=== PATIENT | female | born 1935 | race Caucasian/White ===

== ENCOUNTER 2019-07-12 09:22 | Inpatient (IN) | payer OTHER ==
[2019-07-12] VITALS (34 sets, daily range): BP systolic 81–147; BP diastolic 42–75
[~2019-07-12] VITALS: Ht 170.2 cm; Wt 74.0 kg
[2019-07-12] MEDS ORDERED: SODIUM CHLORIDE 0.9% 1,000 ML IV ONE ×4 (09:51→16:45)
[2019-07-12] MEDS ORDERED: PANTOPRAZOLE 80 MG in SODIUM CHL 0.9% 60 ML IV ONE (10:00)
[2019-07-12] MEDS ORDERED: OCTREOTIDE ACETATE 100 MCG in SODIUM CHL 0.9% 50 ML IV ONE (10:00)
[2019-07-12 10:31] LABS: Calcium 8.9 mg/dL (8.5-10.1); Chloride 105 mmol/L (98-107); Sodium 138 mmol/L (136-145)
[2019-07-12 10:34] LABS: Albumin 2.2 g/dL (3.4-5.0); Anion Gap 18 (5-15); BUN/Creatinine Ratio 30.7; Blood Alcohol < 3.0 mg/dL (0-5); Blood Urea Nitrogen 65 mg/dL (7-18); Carbon Dioxide 15 mmol/L (21-32); GFR African American 28 mL/min; GFR Non-African American 24 mL/min; Glucose 63 mg/dL (74-106)
[2019-07-12 10:37] LABS: Hemoglobin 13.1 g/dL (12.2-16.2)
[2019-07-12 10:37] LABS: Urine Amorphous Crystal FEW /hpf (None Seen); Urine Bacteria MOD /hpf (None Seen); Urine Blood Negative /uL (Negative); Urine Hyaline Cast FEW /lpf (0 - 2); Urine Specific Gravity 1.008 (1.001-1.035); Urine WBC 83 /hpf (0 - 5); Urine WBC Clumps PRESENT /hpf (None Seen)
[2019-07-12 10:38] LABS: Lactic Acid w/Reflex 10.4 mmol/L (0.4-2.0)
[2019-07-12 10:42] LABS: Alanine Aminotransferase 21 U/L (13-56); Alkaline Phosphatase 710 U/L (45-117); Aspartate Aminotransferase 38 U/L (15-37); Bilirubin, Total 1.6 mg/dL (0.2-1.0); Hematocrit 39.2 % (36.0-46.0); Mean Corpuscular Hemoglobin 28.4 pg (28.0-32.0); Mean Corpuscular Hgb Conc. 33.4 g/dL (32.0-36.0); Platelet Count (auto) 34 10^3/uL (140-450); Red Blood Cells 4.61 10^6/uL (4.0-5.20); Red Cell Distribution Width 18.6 % (11.8-14.3); Total Protein 6.4 g/dL (6.4-8.2); White Blood Cell 8.2 10^3/uL (4.4-10.8)
[2019-07-12] MEDS ORDERED: SODIUM CHLORIDE 0.9% 500 ML IV ONE (10:45)
[2019-07-12 10:50] LABS: INR 1.21 (0.9-1.15); Partial Thromboplastin Time 26.1 sec (23.64-32.05)
[2019-07-12] MEDS ORDERED: NOREPINEPHRINE 8 MG/250ML KIT 250 ML IV ONE (10:53)
[2019-07-12 10:56] LABS: Basophils % (manual) 0 (0.0-2.0); Blast Cells 0; Metamyelocytes % 0; Myelocytes % 0; Promyelocytes % 0; Reactive Lymphocytes 0
[2019-07-12] MEDS ORDERED: DEXTROSE (50%) 50ML SYRG IV ONE (11:00)
[2019-07-12] MEDS ORDERED: PIPERACILLIN-TAZOB 3.375GM 100 ML IV ONE (11:00)
[2019-07-12] MEDS: NOREPINEPHRINE 8 MG/250ML KIT 250 ML IV SCH (11:00)
[2019-07-12 11:31] LABS: Band Neutrophils % (manual) 4; Eosinophils % (manual) 1 (0-7); Lymphocytes % (manual) 3 (10.0-50.0); Monocytes % (manual) 3 (0-12)
[2019-07-12] MEDS ORDERED: cefTRIAXone 1GM/50ML D5W 50 ML IV ONE (12:00)
[2019-07-12] MEDS ORDERED: ONDANSETRON HCL 4 MG/2 ML VIAL IV ONE (13:00)
[2019-07-12] MEDS ORDERED: MORPHINE SULF INJ 2 MG/ML SYRINGE 1ML IV ONE (13:00)
[2019-07-12] MEDS ORDERED: ONDANSETRON HCL 4 MG/2 ML VIAL IV PRN (13:30)
[2019-07-12] MEDS ORDERED: ACETAMINOPHEN 500 MG TAB PO PRN (13:30)
[2019-07-12] MEDS ORDERED: NITROGLYCERIN 0.4 MG SL TAB SL PRN (13:30)
[2019-07-12] MEDS ORDERED: HYDROcodone-ACET 5/325MG TAB PO PRN (13:30)
[2019-07-12] MEDS ORDERED: MORPHINE SULF INJ 2 MG/ML SYRINGE 1ML IV PRN ×2 (13:30)
--- NOTE | 2019-07-12 16:00 | NUR ---
MD ENGEL AT BEDSIDE. UPDATED MD WITH PT OVERALL STATUS INCLUDING INQUIRY OF PROTONIX GTT. GTT D/C'ED PER MD, NO NEW ORDERS AT THIS TIME. WILL OBTAIN STOOL CULTURES ONCE PT HAS A BM. VSS.
[2019-07-12] MEDS: SODIUM CHLORIDE 0.9% 1,000 ML IV SCH (17:00)
--- NOTE | 2019-07-12 17:10 | NUR ---
MD MICHAEL AT BEDSIDE. UPDATED MD WITH PT OVERALL STATUS INCLUDING ABNORMAL LAB VALUES. NEW ORDERS RECEIVED AND IMPLEMENTED, VSS.
[2019-07-12] MEDS: VASOPRESSIN 50 UNITS in D5W 5% 247.5 ML IV SCH (17:15)
--- NOTE | 2019-07-12 17:30 | NUR ---
PT RECEIVED FROM ER AT THIS TIME. PT A/O X3 (MILD CONFUSION TO TIME) AND KEEPS LEFT EYE CLOSED (PT CAN OPEN IT BUT STATES IT IS MORE COMFORTABLE CLOSED). SEE FLOWSHEET FOR DETAILED ASSESSMENT. VSS. PT STILL ON LEVOPHED GTT.
--- NOTE | 2019-07-12 18:00 | NUR ---
PT'S DTR IS[place]O AT BEDSIDE. UPDATED FAMILY WITH PT'S POC. NO FURTHER QUESTIONS AT THIS TIME. FAMILY STATES THEY WILL BRING IN PT'S HOME MEDICATION LIST TOMORROW AM. VSS.
[2019-07-12] MEDS: PIPERACILLIN-TAZOB 2.25GM 50 ML IV SCH (18:22)
[2019-07-12 20:05] LABS: Lactic Acid w/Reflex 3.6 mmol/L (0.4-2.0)
[2019-07-12] MEDS: DOCUSATE SOD 100 MG CAP PO SCH (21:52)
[2019-07-12] MEDS: methylPREDNISolone SOD SUCC 40 MG/ML VL IV SCH (21:52)
[2019-07-12] MEDS: HEPARIN SODIUM (PORCINE) 5000 UNITS/ML 1ML VIAL SC SCH (21:54)
[2019-07-12] MEDS ORDERED: PANTOPRAZOLE 40 MG/10 ML VIAL INJ IV SCH (22:00)
[2019-07-13] VITALS (74 sets, daily range): BP systolic 77–141; BP diastolic 38–80
[2019-07-13] MEDS: SODIUM CHLORIDE 0.9% 1,000 ML IV SCH ×4 (00:33→21:00)
[2019-07-13] MEDS: PIPERACILLIN-TAZOB 2.25GM 50 ML IV SCH ×5 (00:34→22:30)
[2019-07-13 03:37] LABS: Basophils # (auto) 0 uL; Basophils % (auto) 0.1 % (0.0-2.0); Hemoglobin 11.2 g/dL (12.2-16.2)
[2019-07-13 03:39] LABS: Eosinophils # (auto) 0.5 uL; Eosinophils % (auto) 2.4 % (0.0-7.0); Lymphocytes # (auto) 0.3 uL; Lymphocytes % (auto) 1.5 % (10.0-50.0); Mean Corpuscular Hemoglobin 28.1 pg (28.0-32.0); Monocytes # (auto) 0.6 uL; Neutrophils # (auto) 17.5 uL; Platelet Count (auto) 35 10^3/uL (140-450); Red Blood Cells 3.99 10^6/uL (4.0-5.20); Red Cell Distribution Width 18.7 % (11.8-14.3); White Blood Cell 18.9 10^3/uL (4.4-10.8)
[2019-07-13 03:56] LABS: BUN/Creatinine Ratio 27.7; Calcium 7.6 mg/dL (8.5-10.1); Potassium 4.5 mmol/L (3.5-5.1)
--- NOTE | 2019-07-13 07:05 | NUR ---
OPENING NOTE SHIFT REPORT RECEIVED AND ASSUMED CARE OF PT FROM LADARIUS FRANCIS
[2019-07-13] MEDS ORDERED: cefTRIAXone 1GM/50ML D5W 50 ML IV SCH (09:00)
[2019-07-13] MEDS: HEPARIN SODIUM (PORCINE) 5000 UNITS/ML 1ML VIAL SC SCH ×2 (10:00→22:07)
--- NOTE | 2019-07-13 10:00 | NUR ---
CAPITAL EQUIPMENT SPECIALIST AT BEDSIDE
[2019-07-13] MEDS: FAMOTIDINE 20 MG TAB PO SCH (10:13)
[2019-07-13] MEDS: DOCUSATE SOD 100 MG CAP PO SCH ×2 (10:13→22:06)
[2019-07-13] MEDS: methylPREDNISolone SOD SUCC 40 MG/ML VL IV SCH ×2 (10:13→22:06)
--- NOTE | 2019-07-13 10:30 | NUR ---
DR. CHAVEZ AT BEDSIDE ORDERS RECEIVED
--- NOTE | 2019-07-13 10:30 | NUR ---
EEG COMPLETED AT BEDSIDE. TITO MARTINEZ.
[2019-07-13] MEDS: NOREPINEPHRINE 8 MG/250ML KIT 250 ML IV SCH (10:51)
--- NOTE | 2019-07-13 13:15 | NUR ---
DR. DIALLO AT BEDSIDE ORDERS RECEIVED
[2019-07-13] MEDS ORDERED: SODIUM CHLORIDE 0.9% 500 ML IV ONE (14:00)
--- NOTE | 2019-07-13 15:00 | NUR ---
LEVOPHED TURNED OFF. WILL CONTINUE TO MONITOR
[2019-07-13] MEDS: VASOPRESSIN 50 UNITS in D5W 5% 247.5 ML IV SCH (17:15)
--- NOTE | 2019-07-13 19:30 | NUR ---
CLOSING NOTE SHIFT REPORT GIVE BACK AND CARE ENDORSED TO LADARIUS FRANCIS
[2019-07-14] VITALS (16 sets, daily range): BP systolic 95–133; BP diastolic 58–80
[2019-07-14] MEDS: SODIUM CHLORIDE 0.9% 1,000 ML IV SCH ×2 (01:10→09:00)
[2019-07-14 03:44] LABS: Basophils # (auto) 0 uL; Basophils % (auto) 0.1 % (0.0-2.0); Eosinophils # (auto) 0 uL; Hematocrit 30.9 % (36.0-46.0); Hemoglobin 10.2 g/dL (12.2-16.2); Lymphocytes # (auto) 0.3 uL; Lymphocytes % (auto) 2.1 % (10.0-50.0); Mean Corpuscular Hemoglobin 28.1 pg (28.0-32.0); Mean Corpuscular Volume 85.2 fL (80.0-100.0); Monocytes # (auto) 0.7 uL; Monocytes % (auto) 5.5 % (0.0-12.0); Neutrophils # (auto) 11.2 uL; Neutrophils % (auto) 92.3 % (37.0-80.0); Platelet Count (auto) 33 10^3/uL (140-450); Red Blood Cells 3.63 10^6/uL (4.0-5.20); Red Cell Distribution Width 18.7 % (11.8-14.3); White Blood Cell 12.2 10^3/uL (4.4-10.8)
[2019-07-14 04:02] LABS: Potassium 4.1 mmol/L (3.5-5.1)
[2019-07-14 04:04] LABS: Lactic Acid w/Reflex 2.4 mmol/L (0.4-2.0)
[2019-07-14 04:08] LABS: Albumin 1.4 g/dL (3.4-5.0); BUN/Creatinine Ratio 30.2; Bilirubin, Total 1.3 mg/dL (0.2-1.0); Calcium 7.7 mg/dL (8.5-10.1); Magnesium 1.9 mg/dL (1.6-2.6); Total Protein 4.8 g/dL (6.4-8.2)
[2019-07-14] MEDS: PIPERACILLIN-TAZOB 2.25GM 50 ML IV SCH ×3 (05:53→18:30)
--- NOTE | 2019-07-14 07:00 | NUR ---
Opening Shift Note Assumed care of patient, awake and alert. No S/S of distress/SOB or pain. Insructed on POC and to callfor assist PRN, will continue to monitor for changes.
--- NOTE | 2019-07-14 09:00 | NUR ---
Family updated on pt status Family ESTEBAN Shiekh updated on patient's status and condition. All questions and concerns addressed. Daughter verbalized understanding.
[2019-07-14] MEDS: methylPREDNISolone SOD SUCC 40 MG/ML VL IV SCH (09:47)
[2019-07-14] MEDS: FAMOTIDINE 20 MG TAB PO SCH (09:48)
[2019-07-14] MEDS: DOCUSATE SOD 100 MG CAP PO SCH (09:48)
[2019-07-14] MEDS: HEPARIN SODIUM (PORCINE) 5000 UNITS/ML 1ML VIAL SC SCH (09:49)
--- NOTE | 2019-07-14 10:47 | NUR ---
SEEN AND EVAL BY DR CHAVEZ. PT CAN BE TRANSFERRED TO [facility] WHEN BED IS AVAILABLE. DAUGHTER AT THE BEDSIDE.
[2019-07-14] MEDS ORDERED: SODIUM CHLORIDE 0.9% 1,000 ML IV SCH (11:00)
[2019-07-14] MEDS ORDERED: MAGNESIUM SULFATE 1GM/100ML 100 ML IV ONE (11:00)
--- NOTE | 2019-07-14 12:16 | NUR ---
1200 07/14/19 Contacted [facility] to speak with [facility] and request authorization for patient's continued stay. I was left on hold for more than 10 minutes, unable to speak with a live person, unable to leave a message. I faxed transfer order, transfer summary, MD progress notes for 07/14/19 and Notice Regarding Post Stabilization to [facility] [phone].
--- NOTE | 2019-07-14 12:33 | NUR ---
1230 07/14/19 I received a call from [facility] [employer] letting me know that they received the faxed transfer order, transfer summary and MD progress notes. I provided her with contact information for Dr. Blackwood (made Dr Blackwood aware of this). Per [employer] [facility] they will work on a bed assignment for this patient and will call the nurse's station when one becomes available.
--- NOTE | 2019-07-14 16:00 | NUR ---
TRANSFERRED TO [facility]. REPORT GIVEN TO TITO HUMPHRIES.
--- NOTE | 2019-07-14 16:05 | NUR ---
RECEIVED PATIENT FROM ICU. PATIENT CONNECTED TO BEDSIDE MONITORS, ON 2L NASAL CANNULA. PATIENT INSTRUCTED TO CALL IF NEEDED, CALL LIGHT WITHIN REACH. PATIENTS DAUGHTER AT BEDSIDE. UPDATED ON PLAN OF CARE. BED IN LOW POSITION AND IN VIEW OF NURSES STATION.. WILL CONTINUE TO MONITOR CLOSELY
--- NOTE | 2019-07-14 17:44 | NUR ---
BAILEY CALLED WITH BED ASSIGNMENT [facility] ROOM 215. ACCEPTING MD: DR FREIRE REPORT TO BE GIVEN TO [phone] ETA [id number]
--- NOTE | 2019-07-14 17:46 | NUR ---
PATIENTS DAUGHTER ISIDORO NOTIFIED OF TRANSFER INFORMATION
--- NOTE | 2019-07-14 19:35 | NUR ---
Opening Shift Note Assumed care of patient, awake and alert, A&O x3. Able to lift arms and legs. [place], hearing aid on left ear. Dentures upper and lower in Pt's mouth. Breathing on O2NC 2 LPM, even but tachypneic, No S/S of distress/SOB. Denied pain. TLC at left IJ, CDI site, flushed well. Nelson's catheter hung to gravity, with clear light pilo urine. Optifoam intact at sacrum, no open skin, or redness. No family at bedside at this time. Instructed on POC, transfer plan and to call for assist PRN, will continue to monitor for changes Q1hr and PRN.
--- NOTE | 2019-07-14 20:05 | NUR ---
Report given to [facility]. ALS team at bedside, will give the report after D/C documentation done.
--- NOTE | 2019-07-14 20:53 | NUR ---
ALS team at bedside Report given to the ALS team. Prepared Pt to transfer. Pt's hearing aid and dentures are with Pt. Called Caryn; Pt's DTR for the update, DTR has all other pt's belongings.
--- NOTE | 2019-07-14 20:59 | NUR ---
Pt left the unit with ALS team. No s/s of distress. v/s stable.
== END 2019-07-14 20:30 | disposition short-term general hospital (02) | DRG 871 ==
LOC: EDBD 09:22 → ER 09:22 → TELE 09:23 → ICU WEST 16:22 → DOU IN ICU 07-14 16:00
PROVIDERS: ADMIT Nurse Practitioner Acute Care; ATTEND Internal Medicine
PROC: 02HV33Z Insertion of Infusion Device into Superior Vena Cava, Percutaneous Approach (ICD-10-PCS; principal; 2019-07-12)
DX: A41.51 Sepsis due to Escherichia coli [E. coli] (principal); G93.41 Metabolic encephalopathy; E43 Unspecified severe protein-calorie malnutrition; R65.21 Severe sepsis with septic shock; N17.0 Acute kidney failure with tubular necrosis; I21.4 Non-ST elevation (NSTEMI) myocardial infarction; N39.0 Urinary tract infection, site not specified; K92.2 Gastrointestinal hemorrhage, unspecified; R29.6 Repeated falls; N28.89 Other specified disorders of kidney and ureter; K80.20 Calculus of gallbladder without cholecystitis without obstruction; K21.9 Gastro-esophageal reflux disease without esophagitis; H49.40 Progressive external ophthalmoplegia, unspecified eye; E86.1 Hypovolemia; I13.10 Hypertensive heart and chronic kidney disease without heart failure, with stage 1 through stage 4 chronic kidney disease, or unspecified chronic kidney disease; N18.9 Chronic kidney disease, unspecified; D69.6 Thrombocytopenia, unspecified; Z68.25 Body mass index [BMI] 25.0-25.9, adult; Z80.0 Family history of malignant neoplasm of digestive organs; Z85.3 Personal history of malignant neoplasm of breast; Z87.440 Personal history of urinary (tract) infections; Z90.13 Acquired absence of bilateral breasts and nipples; Z90.710 Acquired absence of both cervix and uterus
CPT/HCPCS: 36415; 36556; 70450; 71045; 74176; 80048; 80053; 80061; 80320; 81001; 82962; 83605; 83735; 83880; 84439; 84443; 84484; 85007; 85025; 85027; 85610; 85730; 86850; 86900; 86901; 87040; 87077; 87081; 87086; 87088; 87186; 93005; 93306; 93886; 93970; 95819; 96365; 96367; 96375; 99291; C9113; G0378; J0696; J2405; J2543; J7060